=== PATIENT | male | born 1955 | race Caucasian/White ===

== ENCOUNTER 2018-01-09 11:54 | Emergency (ER) | payer OTHER ==
[~2018-01-09] VITALS: Ht 185.4 cm; Wt 108.0 kg
[2018-01-09 11:57] VITALS: Ht 185.4 cm; Wt 108.0 kg
[2018-01-09 13:02] LABS: BASO % 0.3 %; BASO ABS # 0.02 K/uL (0-0.2); EOS % 3.2 %; HEMATOCRIT 44.2 % (42-52); HEMOGLOBIN 15.2 g/dL (14.0-18.0); IG# 0.04 K/uL (0.00-0.02); LYMPH % 29.1 %; LYMPH ABS # 1.82 K/uL (1.2-3.4); MEAN CELL VOLUME 92.3 fL (80-100); MEAN CORPUSCULAR HEMOGLOBIN 31.7 pg (25-34); MEAN CORPUSCULAR HGB CONC 34.4 g/dl (32-36); MONO % 8.8 %; MONO ABS # 0.55 K/uL (0.11-0.59); NEUT ABS # 3.63 K/uL (1.4-6.5); PLATELET COUNT 189 K/uL (130-400); RED CELL DISTRIBUTION WIDTH CV 13.6 % (11.5-14.5); RED CELL DISTRIBUTION WIDTH SD 45.8 fL (36.4-46.3); WHITE BLOOD COUNT 6.26 K/uL (4.8-10.8)
[2018-01-09 13:14] LABS: ALBUMIN 3.8 gm/dl (3.4-5.0); ALKALINE PHOSPHATASE 49 U/L (45-117); ALT/SGPT 15 U/L (12-78); AST/SGOT 17 U/L (15-37); BLOOD UREA NITROGEN 18 mg/dl (7-18); CALCIUM 8.5 mg/dl (8.5-10.1); CARBON DIOXIDE 26 mmol/L (21-32); CKMB 2.3 ng/ml (0.5-3.6); GLUCOSE 93 mg/dl (70-99); LIPASE 205 U/L (73-393); POTASSIUM 4.1 mmol/L (3.5-5.1); SODIUM 137 mmol/L (136-145)
--- NOTE | 2018-01-09 13:20 | DIAGNOSTIC IMAGING REPORT ---
CHEST ONE VIEW PORTABLE CLINICAL HISTORY: Fever. Sepsis. COMPARISON STUDY: No previous studies for comparison. FINDINGS: Lung volumes are normal. No pneumothorax or pleural effusion is noted. Mild left basilar opacity is present. There is no evidence for pulmonary edema. Cardiac size is normal. Mediastinal contours are unremarkable. IMPRESSION: Mild left basilar opacity. Atelectasis is favored although pneumonia could appear similar. Radiographic follow-up is recommended. Electronically signed by: Immanuel Martinez M.D. 01/09/2018 1:18 PM Dictated Date/Time: 01/09/2018 1:17 PM
[2018-01-09] MEDS ORDERED: VNTHFA/IN INH (13:37)
--- NOTE | 2018-01-09 14:30 | EMERGENCY ROOM VISIT NOTE ---
History Report prepared by Trang: Vadim Stacy Under the Supervision of: Dr. Giuseppe Sheriff D.O. First contact with patient: 12:43 Chief Complaint: DIZZY Stated Complaint: LT SIDE PAIN SENT FROM [facility] [place] Nursing Triage Summary: PT STATES INTERMITTENT DIZZINESS ASSOCIATED WITH IRREGULAR HEART RHYTHM, PT STATES WHEN DIZZY HE CHECKS HIS PULSE AND FEELS "SKIPPED BEATS," PT STATES LEFT SHOULDER PAIN HE BELIEVES IS A PINCHED NERVE, PT STATES HX COPD AND SMOKING History of Present Illness The patient is a 62 year old male who presents to the Emergency Room with several different complaints that are all now-resolved. The patient was on a walk this morning at 0800, 4 hours and 45 minutes ago. He states that during this walk he became "lightheaded and dizzy." He also notes experiencing some "shortness of breath" he checked his pulse and thought his heart was "skipping beats." He adds that he was weak as well and was feeling "numbness" in the left arm. The patient notes that 6-7 months ago he was experiencing intermittent syncopal episodes. He did follow for these episodes and had "brain scans" performed. Source of History: patient Onset: 4 hours and 45 minutes ago Position: head Quality: other (lightheaded ) Timing: resolved Associated Symptoms: + SOB, + weakness, + numbness Review of Systems See HPI for pertinent positives & negatives. A total of 10 systems reviewed and were otherwise negative. Past Medical & Surgical Hx of Asthma and COPD Social History Smoking Status: Current Every Day Smoker Drug Use: none Occupation Status: employed Current/Historical Medications Scheduled Albuterol Hfa (Ventolin Hfa), 2-4 PUFFS INH DIRECTED Allergies Coded Allergies: No Known Allergies (Unverified , 01/09/18) Physical Exam Vital Signs Date Time Temp Pulse Resp B/P (MAP) Pulse Ox O2 Delivery O2 Flow Rate FiO2 01/09/18 13:54 76 16 168/97 94 Room Air 01/09/18 12:22 76 01/09/18 11:57 36.9 87 18 138/88 96 Room Air Physical Exam CONSTITUTIONAL/VITAL SIGNS: Reviewed / noted above. GENERAL: Non-toxic in appearance. INTEGUMENTARY: Warm, dry, and [place]. HEAD: Normocephalic. EYES: without scleral icterus or trauma. ENT/OROPHARYNX: clear and moist. LYMPHADENOPATHY/NECK: Is supple without lymphadenopathy or meningismus. RESPIRATORY: Lungs clear and equal. CARDIOVASCULAR: Regular rate and rhythm. GI/ABDOMEN: Soft and nontender. No organomegaly or pulsatile mass. No rebound or guarding. Normal bowel sounds. EXTREMITIES: Warm and well perfused. BACK: No CVA tenderness. NEUROLOGICAL: Intact without focal deficits. PSYCHIATRIC: normal affect. MUSCULOSKELETAL: Normally developed with good muscle tone. Medical Decision & Procedures ER Provider Diagnostic Interpretation: Radiology results as stated below per my review and radiologist interpretation: CHEST ONE VIEW PORTABLE CLINICAL HISTORY: Fever. Sepsis. COMPARISON STUDY: No previous studies for comparison. FINDINGS: Lung volumes are normal. No pneumothorax or pleural effusion is noted. Mild left basilar opacity is present. There is no evidence for pulmonary edema. Cardiac size is normal. Mediastinal contours are unremarkable. IMPRESSION: Mild left basilar opacity. Atelectasis is favored although pneumonia could appear similar. Radiographic follow-up is recommended. Electronically signed by: Immanuel Martinez M.D. 01/09/2018 1:18 PM Dictated Date/Time: 01/09/2018 1:17 PM Laboratory Results 01/09/18 12:31 Red Blood Count 4.79, Mean Corpuscular Volume 92.3, Mean Corpuscular Hemoglobin 31.7, Mean Corpuscular Hemoglobin Concent 34.4, Mean Platelet Volume 9.0, Neutrophils (%) (Auto) 58.0, Lymphocytes (%) (Auto) 29.1, Monocytes (%) (Auto) 8.8, Eosinophils (%) (Auto) 3.2, Basophils (%) (Auto) 0.3, Neutrophils # (Auto) 3.63, Lymphocytes # (Auto) 1.82, Monocytes # (Auto) 0.55, Eosinophils # (Auto) 0.20, Basophils # (Auto) 0.02 01/09/18 12:31 Test 01/09/18 12:31 White Blood Count 6.26 K/uL (4.8-10.8) Red Blood Count 4.79 M/uL (4.7-6.1) Hemoglobin 15.2 g/dL (14.0-18.0) Hematocrit 44.2 % (42-52) Mean Corpuscular Volume 92.3 fL (80-100) Mean Corpuscular Hemoglobin 31.7 pg (25-34) Mean Corpuscular Hemoglobin Concent 34.4 g/dl (32-36) Platelet Count 189 K/uL (130-400) Mean Platelet Volume 9.0 fL (7.4-10.4) Neutrophils (%) (Auto) 58.0 % Lymphocytes (%) (Auto) 29.1 % Monocytes (%) (Auto) 8.8 % Eosinophils (%) (Auto) 3.2 % Basophils (%) (Auto) 0.3 % Neutrophils # (Auto) 3.63 K/uL (1.4-6.5) Lymphocytes # (Auto) 1.82 K/uL (1.2-3.4) Monocytes # (Auto) 0.55 K/uL (0.11-0.59) Eosinophils # (Auto) 0.20 K/uL (0-0.5) Basophils # (Auto) 0.02 K/uL (0-0.2) RDW Standard Deviation 45.8 fL (36.4-46.3) RDW Coefficient of Variation 13.6 % (11.5-14.5) Immature Granulocyte % (Auto) 0.6 % Immature Granulocyte # (Auto) 0.04 K/uL (0.00-0.02) Anion Gap 7.0 mmol/L (3-11) Est Creatinine Clear Calc Drug Dose 80.2 ml/min Estimated GFR () 73.6 Estimated GFR (Non- 63.5 BUN/Creatinine Ratio 14.9 (10-20) Calcium Level 8.5 mg/dl (8.5-10.1) Total Bilirubin 0.5 mg/dl (0.2-1) Direct Bilirubin 0.1 mg/dl (0-0.2) Aspartate Amino Transf (AST/SGOT) 17 U/L (15-37) Alanine Aminotransferase (ALT/SGPT) 15 U/L (12-78) Alkaline Phosphatase 49 U/L (45-117) Total Creatine Kinase 129 U/L (39-308) Creatine Kinase MB 2.3 ng/ml (0.5-3.6) Creatine Kinase MB Ratio 1.8 (0-3.0) Troponin I < 0.015 ng/ml (0-0.045) Total Protein 7.0 gm/dl (6.4-8.2) Albumin 3.8 gm/dl (3.4-5.0) Lipase 205 U/L (73-393) Laboratory results as stated above per my review. ECG Per My Interpretation Indication: other (Dizzy) Rate (beats per minute): 77 Rhythm: sinus rhythm Findings: PVC, no acute ischemic change, no ectopy ED Course 1244: Previous medical records were reviewed. The patient was evaluated in room C10. A complete history and physical examination was performed. Medical Decision Differential includes acute coronary syndrome, myocardial infarction, CVA, TIA, anemia, infection, pneumonia, UTI, pyelonephritis, poor nutrition, dehydration, electrolyte disturbance,hypoglycemia. This is a 62-year-old male who presents to the ED with a chief complaint of some dizziness and a feeling of palpitations. Patient actually states that this morning he became a little lightheaded and weak. He does have some shortness of breath with exertion because of his COPD but denies this being anything unusual. The patient reported some left-sided arm numbness off and on for the past month as well. His symptoms occurred at 8 AM this morning. The patient's states that when he checked his pulse, it felt a little irregular and this is the reason he went to the urgent care today. He was noticed to have a PVC there and sent here for further evaluation. The patient's vital signs here are normal. His EKG shows a sinus rhythm with an occasional PVC. CBC and complete metabolic panel were normal and a troponin was negative. Chest x-ray did not show acute process. The patient was told the results of the test. He was felt to be stable for discharge and outpatient follow-up. Medication Reconcilliation Current Medication List: was personally reviewed by me Blood Pressure Screening Patient's blood pressure: Elevated blood pressure Impression Primary Impression: Dizziness Additional Impression: PVC's (premature ventricular contractions) Scribe Attestation The scribe's documentation has been prepared under my direction and personally reviewed by me in its entirety. I confirm that the note above accurately reflects all work, treatment, procedures, and medical decision making performed by me. Departure Information Dispostion Home / Self-Care Patient Instructions My [facility] Additional Instructions Your EKG today shows a premature ventricular contraction. There is no specific treatment for this. This is a relatively common condition that does not require any treatment. Blood work today was unremarkable. Chest x-ray did not show any abnormalities. Your blood pressure was elevated today. Follow-up with your doctor later this week for recheck of this. Follow-up with your doctor for further care and evaluation in 1-4 days. Return to the emergency department for worsening or new symptoms or any concerns. You have been examined and treated today on an emergency basis only. This is not a substitute for, or an effort to provide, complete comprehensive medical care. It is impossible to recognize and treat all injuries or illnesses in a single emergency department visit. It is therefore important that you follow up closely with your doctor. Call as soon as possible for an appointment. Problem Qualifiers
[2018-01-09 14:45] VITALS: BP 168/97; PULSE 76; TEMP 36.9; O2SAT 94
== END 2018-01-09 14:46 | disposition home or self-care (01) ==
LOC: C.EDB 11:55 → C.EDC 14:46
DX: R42 Dizziness and giddiness (principal); I49.3 Ventricular premature depolarization; J45.909 Unspecified asthma, uncomplicated; J44.9 Chronic obstructive pulmonary disease, unspecified; F17.200 Nicotine dependence, unspecified, uncomplicated; Z79.51 Long term (current) use of inhaled steroids